=== PATIENT | male | born 1960 | race Caucasian/White ===

== ENCOUNTER 2016-08-27 13:04 | Inpatient (IN) | payer OTHER ==
[2016-08-27] MEDS ORDERED: Sodium Chloride 0.9% 1,000 ML IV STA ×3 (13:32→18:24)
[2016-08-27] MEDS ORDERED: Iohexol 240 (50 ml) PO ONE (13:35)
--- NOTE | 2016-08-27 13:39 | ED PDOC ---
HPI: Abdomen Time Seen by Provider: 08/27/16 13:13 Chief Complaint (Nursing): Abdominal Pain Chief Complaint (Provider): Abdomina pain, lower back pain History Per: Patient History/Exam Limitations: no limitations Onset/Duration Of Symptoms: Days (2) Current Symptoms Are (Timing): Still Present Context: Food Severity: Mild Location Of Pain/Discomfort: Epigastric Quality Of Discomfort: "Pain" Associated Symptoms: Back Pain, Urinary Symptoms Additional History Per: Patient Additional Complaint(s): The pt. is a 56yo male, presents to the ED for evaluation of epigastric abdominal pain with associated lower back pain since yesterday. Pt. reports he ate [employer] at 12:15 pm yesterday and 20 to 30 minutes later, felt faint and light headed. He then experienced abdominal pain and lower back pain which has been intermittent. Pt. reports he went home and took Pepto Bismol and Ibuprofen after which he felt better but his symptoms returned today, prompting his visit to the ED. Pt is additionally complaining of dysuria and frequency and generalized weakness. He denies any chest pain, shortness of breath, cough, throat pain, nausea, vomiting, numbness or tingling. He currently offers no additional medical complaints. No headache. Past Medical History Reviewed: Historical Data, Nursing Documentation, Vital Signs Vital Signs: Last Vital Signs Temp 98.6 F 08/27/16 17:08 Pulse 81 08/27/16 17:08 Resp 16 08/27/16 17:08 BP 116/78 08/27/16 17:08 Pulse Ox 98 08/27/16 17:09 - Medical History PMH: No Chronic Diseases Denies: Chronic Kidney Disease - Surgical History Surgical History: No Surg Hx - Family History Family History: States: Unknown Family Hx - Social History Current smoker - smoking cessation education provided: No Alcohol: None Drugs: Denies - Home Medications Home Medications: Ambulatory Orders Medication Instructions Recorded No Known Home Med 08/27/16 - Allergies Allergies/Adverse Reactions: Allergies Allergy/AdvReac Type Severity Reaction Status Date / Time No Known Allergies Allergy Verified 08/27/16 13:06 Review of Systems ROS Statement: Except As Marked, All Systems Reviewed And Found Negative Constitutional: Positive for: Weakness (generalized) Cardiovascular: Negative for: Chest Pain Respiratory: Negative for: Cough, Shortness of Breath Gastrointestinal: Positive for: Abdominal Pain. Negative for: Nausea, Vomiting Genitourinary Male: Positive for: Dysuria, Frequency Musculoskeletal: Positive for: Back Pain Neurological: Positive for: Other (light headed). Negative for: Weakness, Numbness Physical Exam - Reviewed Nursing Documentation Reviewed: Yes Vital Signs Reviewed: Yes - Physical Exam Appears: Positive for: Uncomfortable Head Exam: Positive for: ATRAUMATIC, NORMAL INSPECTION, NORMOCEPHALIC Skin: Positive for: Normal Color Eye Exam: Positive for: Normal appearance ENT: Positive for: Normal ENT Inspection. Negative for: Nasal Congestion, Pharyngeal Erythema, Tonsillar Exudate Neck: Positive for: Normal, Painless ROM, Supple Cardiovascular/Chest: Positive for: Regular Rate, Rhythm. Negative for: Edema Respiratory: Positive for: Normal Breath Sounds. Negative for: Respiratory Distress Gastrointestinal/Abdominal: Positive for: Soft, Tenderness (mild epigastric tenderness, no lower abdomen tenderness.) Back: Positive for: Normal Inspection. Negative for: L CVA Tenderness, R CVA Tenderness Extremity: Positive for: Normal ROM. Negative for: Tenderness, Pedal Edema, Deformity, Swelling Neurologic/Psych: Positive for: Alert, bullard operator II-XII, Oriented. Negative for: Motor/Sensory Deficits - Laboratory Results Result Diagrams: 08/27/16 14:00 08/27/16 14:00 Interpretation Of Abn Labs: 17.8 wbc, lacate 3, urine wbc, low phos Interpretation Of Abnormal: repeat vbg and lactate improved to normal limits. - ECG ECG: Positive for: Interpreted By Me, Viewed By Me ECG Rhythm: Positive for: Normal QRS, Normal ST Segment, Sinus Rhythm O2 Sat by Pulse Oximetry: 98 (RA) Pulse Ox Interpretation: Normal - Radiology X-Ray: Interpreted by Me, Viewed By Me, Read By Radiologist X-Ray Interpretation: No Acute Disease - CT Scan/US ct Other Rad Studies (CT/US): Read By Radiologist Other Rad Interpretation: no acute - Progress ED Course And Treament: 1819: Stable. AAOx3. Will need admit for pyelonephritis, severe sepsis. 1824: Stable. Spoke with Dr. Correa. Will admit tele. AAOx3. Feels better. No dizziness. He will give further orders when pt. reaches the floor. - Critical Care Total Time (In Min): 30 Documented Critical Care: Time excludes all time spent performint seperately billable procedures Medical Decision Making Medical Decision Making: Time: 1325 Impression: Abdominal pain, light headed Plan: -- CT AP w/ contrast -- Bloodwork -- Bentyl -- Toradol -- Zofran --Reassess Scribe Attestation: Documented by Analia Mims acting as a scribe for Manolo Casey MD. Provider Attestation: All medical record entries made by the Scribe were at my direction and personally dictated by me. I have reviewed the chart and agree that the record accurately reflects my personal performance of the history, physical exam, medical decision making, and the department course for this patient. I have also personally directed, reviewed, and agree with the discharge instructions and disposition. Disposition - Clinical Impression Clinical Impression: Pyelonephritis, Severe sepsis, Hypophosphatemia - Patient ED Disposition Is Patient to be Admitted: Yes Counseled Patient/Family Regarding: Studies Performed, Diagnosis - Disposition Disposition Time: 18:26 Condition: FAIR - Pt Status Changed To: Hospital Disposition Of: Inpatient - Admit Certification Admit to Inpatient:: After my assessment, the patient will require hospitalization for at least two midnights. This is because of the severity of symptoms shown, intensity of services needed, and/or the medical risk in this patient being treated as an outpatient. - POA Present On Arrival: None
[2016-08-27] MEDS ORDERED: Iohexol 240 (50 ml) ONE (13:41)
[2016-08-27 13:56] LABS: VENOUS BLOOD GAS BASE EXCESS -6.7 mmol/L (0.0-2.0); VENOUS BLOOD GAS PCO2 58 mmHg (40-60); VENOUS BLOOD PH 7.19 (7.32-7.43)
--- NOTE | 2016-08-27 14:12 | RAD ---
HISTORY: Sepsis Patient COMPARISON: No prior. FINDINGS: LUNGS: No active pulmonary disease. PLEURA: No significant pleural effusion identified, no pneumothorax apparent. CARDIOVASCULAR: Normal. OSSEOUS STRUCTURES: Portions of the left ribs and left costophrenic angle are excluded from the radiograph. VISUALIZED UPPER ABDOMEN: Normal. OTHER FINDINGS: None. IMPRESSION: No active disease.
[2016-08-27 14:15] LABS: BASO % 0.2 % (0.0-2.0); EOS # 0.1 K/uL (0.0-0.7); EOS % 0.6 % (0.0-4.0); HEMATOCRIT 43.9 % (35.0-51.0); LYMPH % 5.6 % (20.0-40.0); MEAN CELL VOLUME 82.9 fl (80.0-94.0); MEAN CORPUSCULAR HEMOGLOBIN 28.4 pg (27.0-31.0); MEAN CORPUSCULAR HGB CONC 34.2 g/dL (33.0-37.0); MEAN PLATELET VOLUME 9.4 fl (7.2-11.7); MONO # 1.2 K/uL (0.0-0.8); MONO % 6.6 % (0.0-10.0); NEUT # 15.5 K/uL (1.8-7.0); NRBC % 0.1 % (0.0-0.0); PLATELET COUNT 177 K/uL (130-400); RBC URINE 21 /hpf (0-3); RED CELL DISTRIBUTION WIDTH 14.2 % (11.5-14.5); URINE BILIRUBIN NEGATIVE (NEGATIVE); URINE BLOOD NEGATIVE (NEGATIVE); URINE COLOR AMBER (YELLOW); URINE GLUCOSE (UA) NEG (Normal); URINE KETONE NEGATIVE (NEGATIVE); URINE LEUKOCYTE ESTERASE LARGE Leu/uL (Negative); URINE PROTEIN 100 mg/dL (NEGATIVE); URINE UROBILINOGEN 0.2-1.0 mg/dL (0.2-1.0); WBC URINE 697 /hpf (0-5); WHITE BLOOD COUNT 17.8 K/uL (4.8-10.8)
[2016-08-27 14:22] LABS: ALB/GLOB RATIO 1.3 (1.0-2.1); ALKALINE PHOSPHATASE 65 U/L (38-126); ALT/SGPT 56 U/L (21-72); AST/SGOT 31 U/L (17-59); BILIRUBIN,TOTAL 1.2 mg/dl (0.2-1.3); BLOOD UREA NITROGEN 20 mg/dl (9-20); CALCIUM 9.6 mg/dL (8.4-10.2); CARBON DIOXIDE 24 mmol/L (22-30); CHLORIDE 104 mmol/L (98-107); GFR AFRICAN-AMERICAN > 60; GLUCOSE,RANDOM 135 mg/dL (75-110); LIPASE 55 U/L (23-300); MAGNESIUM 1.8 MG/DL (1.6-2.3); PHOSPHOROUS 1.9 mg/dl (2.5-4.5); POTASSIUM 3.8 MMOL/L (3.6-5.0); SODIUM 140 mmol/l (132-148); TOTAL PROTEIN 7.3 G/DL (6.3-8.2)
[2016-08-27 14:28] LABS: PARTIAL THROMBOPLASTIN TIME 25.7 SECONDS (23.3-32.5)
--- NOTE | 2016-08-27 14:51 | CARD ---
APPROVED REPORT EKG Measurement Heart [id number] <Conclusion> Normal sinus rhythm Normal ECG
[2016-08-27] MEDS ORDERED: Piperacillin/Tazobact 3.375 GM in Sodium Chloride 0.9% 100 ML IV STA (14:56)
[2016-08-27] MEDS ORDERED: Piperacillin/Tazobact 3.375 gm Inj IVPB ONE (14:58)
[2016-08-27 15:19] LABS: NEUTROPHIL 88 % (42-75); TOTAL CELLS COUNTED 100
[2016-08-27 16:58] LABS: VENOUS BLOOD GAS BASE EXCESS -0.2 mmol/L (0.0-2.0); VENOUS BLOOD GAS PCO2 37 mmHg (40-60); VENOUS BLOOD PH 7.42 (7.32-7.43)
[2016-08-27] MEDS ORDERED: Sodium Chloride 0.9% 100 ML ONE (17:04)
[2016-08-27] MEDS ORDERED: Iohexol 300 100 ML IJ ONE (17:04)
--- NOTE | 2016-08-27 17:58 | CT ---
PROCEDURE: CT Abdomen and Pelvis with contrast HISTORY: abd pain COMPARISON: None. TECHNIQUE: Contrast dose: 95 cc Radiation dose: Total exam DLP = 13 21 mGy-cm. This CT exam was performed using one or more of the following dose reduction techniques: Automated exposure control, adjustment of the mA and/or kV according to patient size, and/or use of iterative reconstruction technique. FINDINGS: LOWER THORAX: Evaluation of the lung bases reveals evidence of mild interstitial change and dependent atelectasis with some mild linear scarring or additional atelectasis seen in the lingula. No pleural effusion is seen. Visualized distal esophagus shows a small hiatal hernia. LIVER: Liver shows evidence of minor fatty infiltration without evidence of focal mass or intrahepatic ductal dilatation. GALLBLADDER AND BILE DUCTS: Unremarkable. PANCREAS: Unremarkable. No gross lesion or ductal dilatation. SPLEEN: Unremarkable. ADRENALS: Unremarkable. No mass. KIDNEYS AND URETERS: Kidneys show no evidence of hydronephrosis, calculus, or perinephric change. VASCULATURE: Unremarkable. No aortic aneurysm. BOWEL: Visualized stomach is unremarkable without evidence of stomach wall thickening. Duodenum is within normal limits as well as the gastric antrum. Very mild hypertrophic sigmoid colon diverticular changes are noted without pericolonic inflammatory change to suggest acute diverticulitis. No perirectal changes are identified. No bowel obstruction is noted. Terminal ileum is within normal limits. APPENDIX: Normal appendix. PERITONEUM: No pneumoperitoneum is seen. No ascites is noted. There is evidence of a small well-circumscribed benign-appearing nonenhancing cystic structure in the anterior abdomen just posterior to the umbilicus. This measures 3 centimeters x 2.1 centimeters by 3.1 centimeters. There is no definite connection to the umbilicus and/or other structures. This may reflect a small urachal remnant cyst and is probably of no clinical significance. LYMPH NODES: Unremarkable. No enlarged lymph nodes. BLADDER: Bladder is decompressed without focal wall thickening. REPRODUCTIVE: Prostate gland is enlarged. BONES: There is evidence of grade 1 spondylolisthesis of L5-S1. Mild degenerative disc disease is seen in the lower lumbar spine region. No lytic process is seen. OTHER FINDINGS: None. IMPRESSION: No appreciable acute inflammatory process in the abdomen or pelvis. No evidence of bowel obstruction. No free intraperitoneal air or ascites. Very mild diverticular changes in the sigmoid colon without pericolonic inflammatory change. Small nonenhancing smoothly marginated low density cystic structure just posterior to the umbilicus within the anterior abdominal cavity probably representing small urachal remnant cyst or omphalomesenteric cyst.
[2016-08-28] MEDS: Piperacillin/Tazobact 3.375 GM in Sodium Chloride 0.9% 100 ML IVPB SCH ×3 (00:27→16:42)
[2016-08-28] MEDS: Sodium Chloride 0.9% 1,000 ML IV SCH ×3 (02:30→23:34)
[2016-08-28 06:59] LABS: HEMATOCRIT 37.3 % (35.0-51.0); MEAN CORPUSCULAR HEMOGLOBIN 28.8 pg (27.0-31.0); MEAN CORPUSCULAR HGB CONC 34.8 g/dL (33.0-37.0); RED CELL DISTRIBUTION WIDTH 14.2 % (11.5-14.5); WHITE BLOOD COUNT 18.7 K/uL (4.8-10.8)
[2016-08-28 07:14] LABS: ALB/GLOB RATIO 1.1 (1.0-2.1); ALKALINE PHOSPHATASE 57 U/L (38-126); ALT/SGPT 43 U/L (21-72); AST/SGOT 25 U/L (17-59); BILIRUBIN,TOTAL 1.3 mg/dl (0.2-1.3); BLOOD UREA NITROGEN 15 mg/dl (9-20); CALCIUM 8.2 mg/dL (8.4-10.2); CARBON DIOXIDE 23 mmol/L (22-30); CHLORIDE 107 mmol/L (98-107); CHOLESTEROL 138 mg/dL (0-199); GFR AFRICAN-AMERICAN > 60; GLUCOSE,RANDOM 115 mg/dL (75-110); POTASSIUM 3.4 MMOL/L (3.6-5.0); SODIUM 140 mmol/l (132-148); TOTAL PROTEIN 5.7 G/DL (6.3-8.2)
[2016-08-28 07:31] LABS: T4 6.77 ug/dl (5.5-11.0)
[2016-08-28 07:45] LABS: THYROID STIMULATING HORMONE 0.34 mIU/ML (0.46-4.68)
--- NOTE | 2016-08-28 08:05 | HP ---
CHIEF COMPLAINT: Abdominal pain. HISTORY OF PRESENT ILLNESS: This is a 56-year-old male without significant past medical history who after eating at [employer] started having abdominal pain, which got improved with Motrin and Pepto Bi smol and [id number] medication, but then recurred and got worse, so patient was brought to [facility] Room and was found to be septic and admitted for further management. REVIEW OF SYSTEMS: Positive for abdominal pain, back pain and burning and frequency of urination. O therwise also is positive for generalized malaise and fever. Negative for headache, dizziness, synco pe, loss of consciousness, chest pain, shortness of breath, any new joint or extremity pain or neurol ogical symptoms. All other organ systems unremarkable. PAST MEDICAL HISTORY: Unremarkable. PAST SURGICAL HISTORY: Unremarkable. PERSONAL HISTORY: The patient is nonsmoker, nondrinker, no substance abuse. MEDICATIONS: The patient is not on any medications. ALLERGIES: The patient is not allergic to any medication. FAMILY HISTORY: Noncontributory. PHYSICAL EXAMINATION: GENERAL: Well-built, well-nourished, overweight, 56-year-old male, in no acute distress. VITAL SIGNS: Temperature up to 101.4, pulse 80, respirations 19, blood pressure 100/60, saturation 9 5%. HEENT: Pupils reacting to light. No JVD, no thyromegaly, no lymphadenopathy, no nystagmus. Normoce phalic, atraumatic skull. HEART: S1, S2 normal, regular. No significant murmur, gallop or rub is heard. LUNGS: Shows good bilateral air entry. No rales or rhonchi. ABDOMEN: Soft, nontender, no organomegaly, no fluid. Bowel sounds are plus. No sign of acute abdom en. No guarding, no rigidity, no rebound. EXTERNAL GENITALIA: Appropriate for patient's age. RECTAL: Stool for occult blood is negative. EXTREMITIES: No edema, no calf swelling, no tenderness, no acute ischemia. CENTRAL NERVOUS SYSTEM: The patient is alert, awake, oriented x 3. There is no sign of any acute gr oss focal, motor or sensory neurological deficit. DIAGNOSTIC DATA: Available reviewed. Telemetry monitoring does not reveal significant arrhythmia. WBC 17.8, hemoglobin , hematocrit 43, platelets 177. Venous pH was 7.19 with lactic acid level of 3. Sodium 140, potassium 3.8, chloride 104, bicarb 24, BUN 20, creatinine . SMA-12 was unre markable. Urinalysis shows 697 WBCs. CAT scan of abdomen was unremarkable. EKG is unremarkable. C hest x-ray is clear. ADMITTING IMPRESSION: Sepsis syndrome, questionable urinary tract infection with pyelonephritis, que stionable gastroenteritis. PLAN: As ordered. Case and plan discussed with patient. Jonnie Correa MD cc: [id number] TT: 08/28/2016 08:05:28 en
[2016-08-28] MEDS: Enoxaparin 40 mg Syringe SC SCH (08:55)
[2016-08-28] MEDS ORDERED: Metoprolol 1 mg/ml Inj IVP ONE ×2 (09:47→10:30)
[2016-08-28] MEDS ORDERED: Metoprolol 1 mg/ml Inj IVP STA (10:06)
--- NOTE | 2016-08-28 10:15 | PCM.RRTMUL ---
<Alvarez Pearson T - Last Filed: 08/28/16 10:36> DRAINAGE INSPECTOR Nurse Assessment - Situation DRAINAGE INSPECTOR Responder Arrival Time:: 09:53 Location:: [facility]- DRAINAGE INSPECTOR Reason for Call: Tachycardia DRAINAGE INSPECTOR Called By: RN - IV IV Inserted during DRAINAGE INSPECTOR?: No - Respiratory Oxygen Delivery Method:: Nasal Cannula Received Nebulizer Treatments:: No Was the Patient Ventilated with Bag/Mask 100% O2?: No Secretions Suctioned?: No Was the Patient Intubated?: No Was the Patient Placed on a Ventilator?: No - Vital Signs Blood Pressure:: 103/65 Pulse Rate:: 77 Respiratory Rate:: 18 Temperature:: 99 F Responder Note - Time DRAINAGE INSPECTOR was called Time DRAINAGE INSPECTOR was called:: 09:50 - Location Location: [facility] Discovered by:: nurse Primary Nurse:: tigre - DRAINAGE INSPECTOR Team DRAINAGE INSPECTOR Leader:: Kajal Hernández Resident:: Alvarez Pearson - Vital Signs at Initial Assessment Pulse Rate:: 130 - Chest Pain Chest Pain:(If answer is yes, complete next 2 questions): No - Seizure Seizure:: No - Neurological Status Neurological Status (Select all that apply):: Alert, Responsive, Oriented, Verbal, Follows Commands - Respiratory DRAINAGE INSPECTOR Delivery Method:: Nasal Cannula @L/min Oxygen Flow Rate:: 2 - Assessment of Findings DRAINAGE INSPECTOR Interventions: lopressor 5mgIV x 2 dose EKG: afib with rpr Labs: mag, phos, potassium, troponin Summary - Summary of Event Summary of Event: DRAINAGE INSPECTOR: HR of 130's and irregular S: 56 yo male with no significant pmhx presents in the ED with epigastric pain x 1 day found to be febrile 101.[address] abd showing mild diverticular changes. Pt was admitted for sepsis syndrome questionable UTI with pyelonephritis and gastroenteritis. Pt was found to have a heart rate of 130's and irregular rhythm on tele monitoring. Upon initial examination, pt laying in bed with NAD and speaking in full sentence. Pt states mild diffuse abdominal pain. Denies sob, chest pain, palpitation. Denies fever, chills, nausea, vomiting. Pt states having an excercise stress test 2014 with unremarkable result. Pt does not recall the reason for the test. Denies hx of arrhythmia, cardiovascular disease, stroke, DM and significant family history. O: Inital VS: Temp 99F HR 130 irregular BP 98/66 RR 12 PE: general: NAD, laying in bed with no apparent discomfort, speaking in full sentence, AAOx3 cardio: irregular rhythm, s1 and s2 present, no appreciate murmur, rub, gallop no jvd noted lung: clear to ausculation b/l abd: soft nontender bowel sound present ext: full range of motion, no peripheral edema, + pedal pulse Repeat VS: s/p lopressor 5mg IV x 2 doses: HR 118 BP 117/70 A: 56 yo male with no significant pmhx presents admitted for sepsis syndrome questionable UTI with pyelonephritis and gastroenteritis found to have new onset of afib. P: New onset of afib -EKG: afib with rpr. New compare to previous EKG -lopressor 5mg IV x 2 doses even -2L O2 NC given -AM lab reveiwed. f/u troponin, mag, phos, repeat potassium (previous 3.4) -CHADS-VASC score is 0 -pt stable at this time, with HR at 130's -Dr. Correa. pcp, recommend Cardizem drip and cardiology consult -Cardiology consult appreciated, Dr. De Paz: recommend Cardizem drip and hold anticoagulation secondary to gastroenteritis Will examine patient today -cardiazem drip started -Dr. Hernández, hospitalist, present during DRAINAGE INSPECTOR. <Kajal Hernández - Last Filed: 08/28/16 16:33> Attending/Attestation - Attestation I have personally seen and examined this patient.: Yes I have fully participated in the care of the patient.: Yes I have reviewed all pertinent clinical information: Yes Notes (Text): 08/28/16 16:33 Patient seen and examined with resident Dr. Alvarez Pearson. Agree with findings and plan as above.
[2016-08-28] MEDS ORDERED: Amiodarone 900 MG in Dextrose 5% In Water 500 ML IVPB SCH (10:36)
--- NOTE | 2016-08-28 13:07 | CP.PCM.CON ---
History of Present Illness - History of Present Illness History of Present Illness: I was asked to see patient by Dr. Correa. Libby is a 56 year old male with PMH HTN who presents with abdominal pain. He was febrile, and admitted for sepsis. The patient has had recurrent fever. The libby developed atrial fibrillation with rapid ventricular response. He was placed on cardizem drip. Patient denies chest pain or palpitations. Review of Systems - Constitutional Constitutional: absent: As Per HPI, Anorexia, Chills, Daytime Sleepiness, Excessive Sweating, Fatigue, Fever, Frequent Falls, Headache, Increased Appetite , Lethargy, Malaise, Night Sweats, Snoring, Sleep Apnea, Weight Gain, Weight Loss, Weakness, Other - EENT Eyes: absent: As Per HPI, Blind Spots, Blurred Vision, Change in Vision, Decreased Night Vision, Diplopia, Discharge, Dry Eye, Exophthalmos, Floaters, Irritation, Itchy Eyes, Loss of Peripheral Vision, Pain, Photophobia, Requires Corrective Lenses, Sees Flashes, Spots in Vision, Tunnel Vision, Other Visual Disturbances, Loss of Vision, Other Ears: absent: As Per HPI, Decreased Hearing, Ear Discharge, Ear Pain, Tinnitus, Abnormal Hearing, Disequilibrium, Dizziness, Other Nose/Mouth/Throat: absent: As Per HPI, Epistaxis, Nasal Congestion, Nasal Discharge, Nasal Obstruction, Nasal Trauma, Nose Pain, Post Nasal Drip, Sinus Pain, Sinus Pressure, Bleeding Gums, Change in Voice, Dental Pain, Dry Mouth, Dysphagia, Halitosis, Hoarsness, Lip Swelling, Mouth Lesions, Mouth Pain, Odynophagia, Sore Throat, Throat Swelling, Tongue Swelling, Facial Pain, Neck Pain, Neck Mass, Other - Cardiovascular Cardiovascular: Rapid Heart Rate - Respiratory Respiratory: absent: As Per HPI, Cough, Dyspnea, Hemoptysis, Dyspnea on Exertion , Wheezing, Snoring, Stridor, Pain on Inspiration, Chest Congestion, Excessive Mucous Production, Change in Mucous Color, Pain with Coughing, Other - Gastrointestinal Gastrointestinal: Abdominal Pain - Genitourinary Genitourinary: absent: As Per HPI, Change in Urinary Stream, Difficulty Urinating, Dysuria, Flank Pain, Hematuria, Pyuria, Nocturia, Urinary Incontinence, Urinary Frequency, Urinary Hesitance, Urinary Urgency, Voiding Freq/Small Amts, Freq UTI, Hx Renal/Bladder Calculi, Hx /Renal Surgery, Bladder Distension, Other - Musculoskeletal Musculoskeletal: absent: As Per HPI, Abnormal Gait, Arthralgias, Atrophy, Back Pain, Deformity, Joint Swelling, Limited Range of Motion, Loss of Height, Muscle Cramps, Muscle Weakness, Myalgias, Neck Pain, Numbness, Radiating Pain into Limb, Stiffness, Tingling, Other - Integumentary Integumentary: absent: As Per HPI, Acne, Alopecia, Bleeding Lesions, Change in Hair, Change in Nails, Change in Pigmentation, Changing Lesions, Dry Skin, Erythema, Furuncle, Hirsutism, Lesions, New Lesions, Non-Healing Lesions, Photosensitivity, Pruritus, Rash, Skin Pain, Skin Ulcer, Sores, Striae, Swelling , Unusual Bruising, Wounds, Jaundice, Other - Neurological Neurological: absent: As Per HPI, Abnormal Gait, Abnormal Hearing, Abnormal Movements, Abnormal Speech, Behavioral Changes, Burning Sensations, Confusion, Convulsions, Disequilibrium, Dizziness, Numbness, Focal Weakness, Frequent Falls , Headaches, Lack of Coordination, Loss of Vision, Memory Loss, Paresthesias, Radicular Pain, Restless Legs, Sensory Deficit, Syncope, Tingling, Tremor, Vertigo, Weakness, Other Visual Disturbances, Other - Psychiatric Psychiatric: absent: As Per HPI, Abnormal Sleep Pattern, Anhedonia, Anxiety, Auditory Hallucinations, Behavioral Changes, Change in Appetite, Change in Libido, Confusion, Depression, Difficulty Concentrating, Hallucinations, Homicidal Ideation, Hopelessness, Irritability, Memory Loss, Mood Swings, Panic Attacks, Paranoia, Suicidal Ideation, Visual Hallucinations, Tactile Hallucinations, Other - Endocrine Endocrine: absent: As Per HPI, Change in Body Appearance, Change in Libido, Cold Intolorance, Deepening of Voice, Excessive Sweating, Fatigue, Flushing, Heat Intolorance, Increase in Ring/Shoe/Hat Size, Palpitations, Polydipsia, Polyphagia, Polyuria, Other - Hematologic/Lymphatic Hematologic: absent: As Per HPI, Easy Bleeding, Easy Bruising, Lymphadenopathy, Other Past Patient History - Past Medical History & Family History Past Medical History?: Yes - Past Social History Smoking Status: Never Smoked - CARDIAC Hx Cardiac Disorders: No - PULMONARY Hx Respiratory Disorders: No - NEUROLOGICAL Hx Neurological Disorder: No - HEENT Hx HEENT Problems: No - RENAL Hx Chronic Kidney Disease: No - ENDOCRINE/METABOLIC Hx Endocrine Disorders: No - HEMATOLOGICAL/ONCOLOGICAL Hx Blood Disorders: No Hx AIDS: No Hx Human Immunodeficiency Virus (HIV): No - INTEGUMENTARY Hx Dermatological Problems: No - MUSCULOSKELETAL/RHEUMATOLOGICAL Hx Musculoskeletal Disorders: No Hx Falls: No - GASTROINTESTINAL Hx Gastrointestinal Disorders: Yes Hx Colitis: Yes (2011) - GENITOURINARY/GYNECOLOGICAL Hx Genitourinary Disorders: No - PSYCHIATRIC Hx Psychophysiologic Disorder: No Hx Substance Use: No - SURGICAL HISTORY Hx Surgeries: No - ANESTHESIA Hx Anesthesia: No Meds Allergies/Adverse Reactions: Allergies Allergy/AdvReac Type Severity Reaction Status Date / Time No Known Allergies Allergy Verified 08/27/16 13:06 - Medications Medications: Current Medications Acetaminophen (Tylenol 325mg Tab) 650 mg PO Q6 PRN PRN Reason: Fever >100.4 F Last Admin: 08/28/16 02:28 Dose: 650 mg Enoxaparin Sodium (Lovenox) 40 mg SC DAILY ROSANNA PRN Reason: Protocol Last Admin: 08/28/16 08:55 Dose: 40 mg Piperacillin Sod/Tazobactam (Sod 3.375 gm/ Sodium Chloride) 100 mls @ 100 mls/ hr IVPB Q8 ROSANNA Last Admin: 08/28/16 08:55 Dose: 100 mls/hr Sodium Chloride (Sodium Chloride 0.9%) 1,000 mls @ 125 mls/hr IV .Q8H [facility] Stop: 08/29/16 02:22 Last Admin: 08/28/16 02:30 Dose: 125 mls/hr Diltiazem HCl 125 mg/ Sodium (Chloride) 125 mls @ 5 mls/hr IV .Q24H ONE; 5 MG/ HR PRN Reason: Protocol Stop: 08/29/16 10:31 Last Admin: 08/28/16 11:05 Dose: 5 mg/hr, 5 mls/hr Ondansetron HCl (Zofran Inj) 4 mg IVP Q6 PRN PRN Reason: Nausea/Vomiting Physical Exam - Constitutional Appears: Non-toxic - Head Exam Head Exam: NORMAL INSPECTION - Eye Exam Eye Exam: Normal appearance - ENT Exam ENT Exam: Mucous Membranes Moist - Neck Exam Neck exam: Positive for: Full Rom - Respiratory Exam Respiratory Exam: NORMAL BREATHING PATTERN - Cardiovascular Exam Cardiovascular Exam: Tachycardia, Irregular Rhythm - GI/Abdominal Exam GI & Abdominal Exam: Normal Bowel Sounds - Rectal Exam Rectal Exam: Deferred - Extremities Exam Extremities exam: Negative for: pedal edema - Back Exam Back exam: NORMAL INSPECTION - Neurological Exam Neurological exam: Alert, Oriented x3 - Psychiatric Exam Psychiatric exam: Normal Affect - Skin Skin Exam: Normal Color Results - Vital Signs Recent Vital Signs: Last Vital Signs Temp 99.7 F H 08/28/16 11:59 Pulse 181 H 08/28/16 12:00 Resp 18 08/28/16 11:59 BP 155/77 H 08/28/16 12:00 Pulse Ox 99 08/28/16 11:59 - Labs Result Diagrams: 08/28/16 06:15 08/28/16 10:15 Labs: Laboratory Results - last 24 hr 08/28/16 08/28/16 08/28/16 06:15 06:15 10:15 WBC 18.7 H RBC 4.49 Hgb 13.0 D Hct 37.3 MCV 83.0 MCH 28.8 MCHC 34.8 RDW 14.2 Plt Count 146 Sodium 140 Potassium 3.4 L 3.3 L Chloride 107 Carbon Dioxide 23 Anion Gap 13 BUN 15 Creatinine 1.0 Est GFR ( Amer) > 60 Est GFR (Non-Af Amer) > 60 Random Glucose 115 H Calcium 8.2 L Total Bilirubin 1.3 AST 25 ALT 43 Alkaline Phosphatase 57 Troponin I Total Protein 5.7 L Albumin 3.0 L D Globulin 2.7 Albumin/Globulin Ratio 1.1 Triglycerides 76 Cholesterol 138 LDL Cholesterol Direct 82 HDL Cholesterol 33 Thyroxine (T4) 6.77 Total T3 0.648 L TSH 3rd Generation 0.34 L 08/28/16 10:48 WBC RBC Hgb Hct MCV MCH MCHC RDW Plt Count Sodium Potassium Chloride Carbon Dioxide Anion Gap BUN Creatinine Est GFR ( Amer) Est GFR (Non-Af Amer) Random Glucose Calcium Total Bilirubin AST ALT Alkaline Phosphatase Troponin I < 0.0120 Total Protein Albumin Globulin Albumin/Globulin Ratio Triglycerides Cholesterol LDL Cholesterol Direct HDL Cholesterol Thyroxine (T4) Total T3 TSH 3rd Generation - EKG Data EKG Interpreted by: Myself Assessment & Plan (1) Atrial fibrillation with rapid ventricular response Assessment and Plan: likely secondary to sepsis. continue cardizem. will check echocardiogram. hold anticoagulation Status: Acute (2) Severe sepsis Assessment and Plan: antibiotic therapy Status: Acute
[2016-08-28] MEDS ORDERED: Bismuth Subsalicylate 262 mg Chew Tab PO PRN (20:00)
[2016-08-28] MEDS ORDERED: Potassium Chloride 20 mEq ER Tab PO ONE (23:29)
[2016-08-29] MEDS: Piperacillin/Tazobact 3.375 GM in Sodium Chloride 0.9% 100 ML IVPB SCH ×2 (03:35→09:41)
[2016-08-29 07:21] LABS: HEMATOCRIT 37.3 % (35.0-51.0); MEAN CELL VOLUME 83.7 fl (80.0-94.0); MEAN CORPUSCULAR HEMOGLOBIN 28.4 pg (27.0-31.0)
[2016-08-29 07:29] LABS: ALKALINE PHOSPHATASE 66 U/L (38-126); ALT/SGPT 44 U/L (21-72); AST/SGOT 26 U/L (17-59); BILIRUBIN,TOTAL 0.8 mg/dl (0.2-1.3); BLOOD UREA NITROGEN 10 mg/dl (9-20); CALCIUM 8.3 mg/dL (8.4-10.2); CARBON DIOXIDE 23 mmol/L (22-30); CHLORIDE 109 mmol/L (98-107); GFR AFRICAN-AMERICAN > 60; GLUCOSE,RANDOM 122 mg/dL (75-110); MAGNESIUM 1.8 MG/DL (1.6-2.3); PHOSPHOROUS 2.6 mg/dl (2.5-4.5); SODIUM 140 mmol/l (132-148); TOTAL PROTEIN 5.9 G/DL (6.3-8.2)
[2016-08-29 07:31] LABS: POTASSIUM 3.6 MMOL/L (3.6-5.0)
--- NOTE | 2016-08-29 08:45 | PN ---
DATE: 08/29/2016 SUBJECTIVE: The patient is seen and examined. Interim events noted. Consults noted and appreciated . Cardiology and hospitalist interventions noted and appreciated. New onset of rapid AFib, which wa s controlled with Cardizem inpatient. He feels okay. No chest pain, no shortness of breath, no palp itation, no dizziness, no loss of consciousness. PHYSICAL EXAMINATION: GENERAL: The patient is in no acute distress. VITAL SIGNS: Stable. HEART: S1, S2 normal, regular. LUNGS: Good bilateral air exchange. ABDOMEN: Soft, nontender. EXTREMITIES: No edema, no calf swelling, no tenderness, no acute ischemia. CENTRAL NERVOUS SYSTEM: Essentially unchanged. DIAGNOSTIC DATA: Available diagnostic data reviewed. ____. Telemetry monitoring ____ of AFib, curr ently in sinus rhythm. Overall, the patient is clinically stable. PLAN: As ordered. Jonnie Correa MD cc: [id number] TT: 08/29/2016 08:45:29 Confirmation # [id number] Dictation # [id number] nestor
--- NOTE | 2016-08-29 08:55 | CARD ---
APPROVED REPORT EKG Measurement Heart [id number] <Conclusion> Atrial fibrillation with rapid ventricular response Abnormal ECG
[2016-08-29] MEDS: Potassium Chloride 20 mEq ER Tab PO SCH (09:42)
[2016-08-29] MEDS: Enoxaparin 40 mg Syringe SC SCH (09:42)
--- NOTE | 2016-08-29 13:19 | CARD ---
APPROVED REPORT EKG Measurement Heart [id number] <Conclusion> Normal sinus rhythm Normal ECG
--- NOTE | 2016-08-29 13:25 | PQF GENQUE ---
This form is a permanent part of the medical record 08/29/16 Dr. Correa, Documentation Clarification. There is no ICD-10 code for Sepsis Syndrome. Would you please further clarify the patient's condition. Admitted with abdominal pain and burning on urination. + febrile, tachycardia. WBC 17,800 with a L shift, Lactate 3.0. Urine CS growing E coli and Blood CS x 1 gram negative rods. Treated with IVAB Clarification of your documentation is requested to better reflect the severity of illness and intensity of treatment of your patient. PHYSICIAN'S RESPONSE Based on your medical judgment of the clinical indicators outlined above please clarify the following: [] Practitioner response [] If unable to determine, please check the box, sign and date. Present On Admission (POA) Indicator: [] Present at the time of admission [] Not present at the time of admission [] Clinically Undetermined In responding to this query, please exercise your independent professional judgment. The fact that a question is asked does not imply that any particular answer is desired or expected. Thank you for your clarification on this documentation. If you have any questions please call:extension [phone] * Thank you, Chrissie Kaufman RN [facility]
--- NOTE | 2016-08-29 13:37 | PQF GENQUE ---
This form is a permanent part of the medical record 08/29/16 Dr. Correa, ER with an additional diagnosis of Severe Sepsis. When coding Severe Sepsis an additional code to identify the specific acute organ dysfunction needs to be applied. Please clarify if the Severe Sepsis is ruled in or ruled out. If ruled in please document as well the acute organ dysfunction to go along with the Severe Sepsis. Clarification of your documentation is requested to better reflect the severity of illness and intensity of treatment of your patient. PHYSICIAN'S RESPONSE Based on your medical judgment of the clinical indicators outlined above please clarify the following: [] Practitioner response [] If unable to determine, please check the box, sign and date. Present On Admission (POA) Indicator: [] Present at the time of admission [] Not present at the time of admission [] Clinically Undetermined In responding to this query, please exercise your independent professional judgment. The fact that a question is asked does not imply that any particular answer is desired or expected. Thank you for your clarification on this documentation. If you have any questions please call:extension [phone] * Thank you, Chrissie Kaufman RN [facility]
--- NOTE | 2016-08-29 13:45 | CP.PCM.CON ---
History of Present Illness - History of Present Illness History of Present Illness: 56 yo male with gram negative blood stream infection with arrythmia Cardio on board Likely E Coli from urine which was matute sensitive however fever persists desppite IV rx Merrem added pending ID of blood isolate May need eval CT abd reviewed Review of Systems - Constitutional Constitutional: As Per HPI - EENT Eyes: absent: As Per HPI, Blind Spots, Blurred Vision, Change in Vision, Decreased Night Vision, Diplopia, Discharge, Dry Eye, Exophthalmos, Floaters, Irritation, Itchy Eyes, Loss of Peripheral Vision, Pain, Photophobia, Requires Corrective Lenses, Sees Flashes, Spots in Vision, Tunnel Vision, Other Visual Disturbances, Loss of Vision, Other Ears: absent: As Per HPI, Decreased Hearing, Ear Discharge, Ear Pain, Tinnitus, Abnormal Hearing, Disequilibrium, Dizziness, Other Nose/Mouth/Throat: absent: As Per HPI, Epistaxis, Nasal Congestion, Nasal Discharge, Nasal Obstruction, Nasal Trauma, Nose Pain, Post Nasal Drip, Sinus Pain, Sinus Pressure, Bleeding Gums, Change in Voice, Dental Pain, Dry Mouth, Dysphagia, Halitosis, Hoarsness, Lip Swelling, Mouth Lesions, Mouth Pain, Odynophagia, Sore Throat, Throat Swelling, Tongue Swelling, Facial Pain, Neck Pain, Neck Mass, Other - Cardiovascular Cardiovascular: absent: As Per HPI, Acrocyanosis, Chest Pain, Chest Pain at Rest , Chest Pain with Activity, Claudication, Diaphoresis, Dyspnea, Dyspnea on Exertion, Edema, Irregular Heart Rhythm, Pain Radiating to Arm/Neck/Jaw, Leg Edema, Leg Ulcers, Lightheadedness, Orthopnea, Palpitations, Paroxysmal Nocturnal Dyspnea, Pedal Edema, Radiating Pain, Rapid Heart Rate, Slow Heart Rate, Syncope, Other - Respiratory Respiratory: absent: As Per HPI, Cough, Dyspnea, Hemoptysis, Dyspnea on Exertion , Wheezing, Snoring, Stridor, Pain on Inspiration, Chest Congestion, Excessive Mucous Production, Change in Mucous Color, Pain with Coughing, Other - Gastrointestinal Gastrointestinal: absent: As Per HPI, Abdominal Pain, Belching, Bloating, Change in Bowel Habits, Change in Stool Character, Coffee Ground Emesis, Constipation, Cramping, Diarrhea, Dyspepsia, Dysphagia, Early Satiety, Excessive Flatus, Fecal Incontinence, Heartburn, Hematemesis, Hematochezia, Loose Stools, Melena, Nausea, Odynophagia, Temesmus, Vomiting, Other - Genitourinary Genitourinary: As Per HPI - Musculoskeletal Musculoskeletal: absent: As Per HPI, Abnormal Gait, Arthralgias, Atrophy, Back Pain, Deformity, Joint Swelling, Limited Range of Motion, Loss of Height, Muscle Cramps, Muscle Weakness, Myalgias, Neck Pain, Numbness, Radiating Pain into Limb, Stiffness, Tingling, Other - Integumentary Integumentary: absent: As Per HPI, Acne, Alopecia, Bleeding Lesions, Change in Hair, Change in Nails, Change in Pigmentation, Changing Lesions, Dry Skin, Erythema, Furuncle, Hirsutism, Lesions, New Lesions, Non-Healing Lesions, Photosensitivity, Pruritus, Rash, Skin Pain, Skin Ulcer, Sores, Striae, Swelling , Unusual Bruising, Wounds, Jaundice, Other - Neurological Neurological: absent: As Per HPI, Abnormal Gait, Abnormal Hearing, Abnormal Movements, Abnormal Speech, Behavioral Changes, Burning Sensations, Confusion, Convulsions, Disequilibrium, Dizziness, Numbness, Focal Weakness, Frequent Falls , Headaches, Lack of Coordination, Loss of Vision, Memory Loss, Paresthesias, Radicular Pain, Restless Legs, Sensory Deficit, Syncope, Tingling, Tremor, Vertigo, Weakness, Other Visual Disturbances, Other - Psychiatric Psychiatric: absent: As Per HPI, Abnormal Sleep Pattern, Anhedonia, Anxiety, Auditory Hallucinations, Behavioral Changes, Change in Appetite, Change in Libido, Confusion, Depression, Difficulty Concentrating, Hallucinations, Homicidal Ideation, Hopelessness, Irritability, Memory Loss, Mood Swings, Panic Attacks, Paranoia, Suicidal Ideation, Visual Hallucinations, Tactile Hallucinations, Other - Endocrine Endocrine: absent: As Per HPI, Change in Body Appearance, Change in Libido, Cold Intolorance, Deepening of Voice, Excessive Sweating, Fatigue, Flushing, Heat Intolorance, Increase in Ring/Shoe/Hat Size, Palpitations, Polydipsia, Polyphagia, Polyuria, Other - Hematologic/Lymphatic Hematologic: absent: As Per HPI, Easy Bleeding, Easy Bruising, Lymphadenopathy, Other Past Patient History - Past Medical History & Family History Past Medical History?: Yes - Past Social History Smoking Status: Never Smoked - CARDIAC Hx Cardiac Disorders: No - PULMONARY Hx Respiratory Disorders: No - NEUROLOGICAL Hx Neurological Disorder: No - HEENT Hx HEENT Problems: No - RENAL Hx Chronic Kidney Disease: No - ENDOCRINE/METABOLIC Hx Endocrine Disorders: No - HEMATOLOGICAL/ONCOLOGICAL Hx Blood Disorders: No Hx AIDS: No Hx Human Immunodeficiency Virus (HIV): No - INTEGUMENTARY Hx Dermatological Problems: No - MUSCULOSKELETAL/RHEUMATOLOGICAL Hx Musculoskeletal Disorders: No Hx Falls: No - GASTROINTESTINAL Hx Gastrointestinal Disorders: Yes Hx Colitis: Yes (2011) - GENITOURINARY/GYNECOLOGICAL Hx Genitourinary Disorders: No - PSYCHIATRIC Hx Psychophysiologic Disorder: No Hx Substance Use: No - SURGICAL HISTORY Hx Surgeries: No - ANESTHESIA Hx Anesthesia: No Meds Allergies/Adverse Reactions: Allergies Allergy/AdvReac Type Severity Reaction Status Date / Time No Known Allergies Allergy Verified 08/27/16 13:06 - Medications Medications: Current Medications Acetaminophen (Tylenol 325mg Tab) 650 mg PO Q6 PRN PRN Reason: Fever >100.4 F Last Admin: 08/28/16 13:20 Dose: 650 mg Acetaminophen (Tylenol 325mg Tab) 650 mg PO Q6 PRN PRN Reason: Pain, moderate (4-7) Last Admin: 08/29/16 03:37 Dose: 650 mg Bismuth Subsalicylate (Pepto Bismol) 262 mg PO Q6 PRN PRN Reason: diarhea Last Admin: 08/28/16 21:12 Dose: 262 mg Diltiazem HCl (Cardizem) 30 mg PO TID [facility] Last Admin: 08/29/16 12:23 Dose: Not Given Enoxaparin Sodium (Lovenox) 40 mg SC DAILY ROSANNA PRN Reason: Protocol Last Admin: 08/29/16 09:42 Dose: 40 mg Meropenem 500 mg/ Sodium (Chloride) 100 mls @ 100 mls/hr IVPB Q8 [facility] Ondansetron HCl (Zofran Inj) 4 mg IVP Q6 PRN PRN Reason: Nausea/Vomiting Potassium Chloride (K-Dur 20 Meq Er Tab) 20 meq PO DAILY [facility] Last Admin: 08/29/16 09:42 Dose: 20 meq Physical Exam - Constitutional Appears: Toxic - Head Exam Head Exam: ATRAUMATIC, NORMAL INSPECTION, NORMOCEPHALIC - Eye Exam Eye Exam: PERRL. absent: Scleral icterus Pupil Exam: NORMAL ACCOMODATION - ENT Exam ENT Exam: Mucous Membranes Dry, Normal External Ear Exam, Normal Oropharynx - Neck Exam Neck exam: Negative for: Lymphadenopathy, Thyromegaly - Respiratory Exam Respiratory Exam: Decreased Breath Sounds, Rhonchi - Cardiovascular Exam Cardiovascular Exam: REGULAR RHYTHM, +S1, +S2 - GI/Abdominal Exam GI & Abdominal Exam: Diminished Bowel Sounds, Soft. absent: Tenderness - Rectal Exam Rectal Exam: Deferred - Exam Exam: NORMAL INSPECTION - Extremities Exam Extremities exam: Positive for: pedal pulses present. Negative for: calf tenderness, pedal edema, tenderness - Back Exam Back exam: absent: CVA tenderness (L), CVA tenderness (R) - Neurological Exam Neurological exam: Alert, CN II-XII Intact, Oriented x3, Reflexes Normal - Psychiatric Exam Psychiatric exam: Normal Mood - Skin Skin Exam: Dry, Intact Results - Vital Signs Recent Vital Signs: Last Vital Signs Temp 98.4 F 08/29/16 12:20 Pulse 65 08/29/16 12:23 Resp 20 08/29/16 12:20 BP 107/67 08/29/16 12:23 Pulse Ox 98 08/29/16 12:20 - Labs Result Diagrams: 08/29/16 05:45 08/29/16 05:45 Labs: Laboratory Results - last 24 hr 08/28/16 08/29/16 08/29/16 06:15 05:45 05:45 WBC 12.0 H RBC 4.45 Hgb 12.7 Hct 37.3 MCV 83.7 MCH 28.4 MCHC 34.0 RDW 14.0 Plt Count 141 Sodium 140 Potassium 3.6 Chloride 109 H Carbon Dioxide 23 Anion Gap 12 BUN 10 Creatinine 0.9 Est GFR ( Amer) > 60 Est GFR (Non-Af Amer) > 60 Random Glucose 122 H Calcium 8.3 L Phosphorus 2.6 Magnesium 1.8 Total Bilirubin 0.8 AST 26 ALT 44 Alkaline Phosphatase 66 Total Protein 5.9 L Albumin 3.0 L Globulin 2.9 Albumin/Globulin Ratio 1.0 Vitamin B12 370 Assessment & Plan (1) Atrial fibrillation with rapid ventricular response Status: Acute (2) Pyelonephritis Status: Acute (3) Severe sepsis Status: Acute - Assessment and Plan (Free Text) Assessment: as per orders
--- NOTE | 2016-08-29 16:24 | CARD ---
APPROVED REPORT EXAM: Two-dimensional and M-mode echocardiogram with Doppler and color Doppler. Other Information Quality : GoodRhythm : NSR INDICATION Atrial Fibrillation 2D DIMENSIONS IVSd1.38 (0.7-1.1cm)LVDd4.38 (3.9-5.9cm) LVOT Diameter2.23 (1.8-2.4cm)PWd0.99 (0.7-1.1cm) IVSs1.34 (0.8-1.2cm)LVDs2.88 (2.5-4.0cm) FS (%) 34.2 %PWs1.40 (0.8-1.2cm) M-Mode DIMENSIONS Left Atrium (MM)4.00 (2.5-4.0cm)IVSd1.00 (0.7-1.1cm) Aortic Root3.22 (2.2-3.7cm)LVDd5.63 (4.0-5.6cm) Aortic Cusp Exc.2.16 (1.5-2.0cm)PWd0.97 (0.7-1.1cm) IVSs1.59 cmFS (%) 51 % LVDs2.78 (2.0-3.8cm)PWs1.66 cm Mitral Valve MV E Pqfaxztb166.3cm/sMV DECEL [id number] A Arndfsgv24.7cm/s MV EMO38woG/A ratio1.9MVA (PHT)7.04cm2 TDI Lateral E' Peak V13.04cm/sMedial E' Peak V11.90cm/sE/Lateral E'7.7 E/Medial E'8.4 Pulmonary Valve PV Peak Oskemnrj746.0cm/s Tricuspid Valve TR Peak Rueyumtz804oi/sRAP [id number] Peak Gr.27mmHg [id number] LEFT VENTRICLE The left ventricle is normal size. There is normal left ventricular wall thickness. The left ventricular function is normal. The left ventricular ejection fraction is - 65-70%. There is normal LV segmental wall motion. The left ventricular diastolic function is normal. No left ventricle thrombus noted on this study. There is no ventricular septal defect visualized. There is no left ventricular aneurysm. There is no mass noted in the left ventricle. RIGHT VENTRICLE The right ventricle is normal size. There is normal right ventricular wall thickness. The right ventricular systolic function is normal. ATRIA The left atrium size is normal. There is no thrombus suspected in the left atrium. The right atrium size is normal. The interatrial septum is intact with no evidence for an atrial septal defect. AORTIC VALVE The aortic valve is normal in structure and function. No aortic regurgitation is present. There is no aortic valvular stenosis. MITRAL VALVE The mitral valve is normal in structure and function. There is no evidence of mitral valve prolapse. There is no mitral valve stenosis. Mitral regurgitation is trace. TRICUSPID VALVE The tricuspid valve is normal in structure and function. There is mild to moderate tricuspid regurgitation. Right ventricular systolic pressure is estimated at 36 mmHg. There is no tricuspid valve prolapse or vegetation. There is no tricuspid valve stenosis. PULMONIC VALVE The pulmonary valve is normal in structure and function. There is trace pulmonic valvular regurgitation. GREAT VESSELS The aortic root is normal in size. The IVC is normal in size and collapses >50% with inspiration. PERICARDIAL EFFUSION The pericardium appears normal. There is no pleural effusion. <Conclusion> The left ventricle is normal in size and wall thickness. The left ventricular function is normal. The left ventricular ejection fraction is - 65-70%. The left atrium, right ventricle and right atrium are normal in size. The aortic, mitral and tricuspid valves are normal. There is trace mitral regurgitation and mild to moderate tricuspid regurgitation.
[2016-08-29] MEDS: Meropenem 500 MG in Sodium Chloride 0.9% 100 ML IVPB SCH (16:33)
[2016-08-30] MEDS: Meropenem 500 MG in Sodium Chloride 0.9% 100 ML IVPB SCH ×2 (01:10→09:30)
[2016-08-30 06:51] LABS: HEMATOCRIT 38.2 % (35.0-51.0); MEAN CELL VOLUME 81.6 fl (80.0-94.0); MEAN CORPUSCULAR HGB CONC 34.3 g/dL (33.0-37.0); WHITE BLOOD COUNT 12.1 K/uL (4.8-10.8)
[2016-08-30 07:10] LABS: ALB/GLOB RATIO 1.3 (1.0-2.1); ALKALINE PHOSPHATASE 88 U/L (38-126); ALT/SGPT 47 U/L (21-72); AST/SGOT 28 U/L (17-59); BILIRUBIN,TOTAL 0.7 mg/dl (0.2-1.3); BLOOD UREA NITROGEN 12 mg/dl (9-20); CALCIUM 8.7 mg/dL (8.4-10.2); CARBON DIOXIDE 23 mmol/L (22-30); CHLORIDE 105 mmol/L (98-107); GFR AFRICAN-AMERICAN > 60; GLUCOSE,RANDOM 103 mg/dL (75-110); POTASSIUM 3.8 MMOL/L (3.6-5.0); SODIUM 138 mmol/l (132-148); TOTAL PROTEIN 6.3 G/DL (6.3-8.2)
--- NOTE | 2016-08-30 08:11 | PN ---
DATE: 08/30/2016 The patient seen and examined. Interim events noted. Consults noted, appreciated. Infectious disea se and cardiology followup and intervention noted and appreciated. The patient remains in progressiv e care unit on telemetry monitoring. The patient feels okay. Denies any specific urinary complaint, any chest pain or shortness of breath. PHYSICAL EXAMINATION: GENERAL: The patient is in no acute distress. VITAL SIGNS: Stable. HEART: S1, S2 normal, regular. LUNGS: Good bilateral air entry. ABDOMEN: Soft, nontender. EXTREMITIES: No calf swelling, no edema, no tenderness. CENTRAL NERVOUS SYSTEM: Essentially unchanged. DIAGNOSTIC DATA: Available reviewed. Telemetry monitoring does not reveal significant arrhythmia. PSA level is 59.4. On further inquiry, patient admits to having a prostate problem about a year ago and was seen by Dr. Denis. I will request consult with Dr. Denis again. PLAN: As ordered. Jonnie Correa MD cc: [id number] TT: 08/30/2016 08:11:25 Confirmation # [id number] Dictation # [id number]
[2016-08-30] MEDS: Potassium Chloride 20 mEq ER Tab PO SCH (09:27)
[2016-08-30] MEDS: Enoxaparin 40 mg Syringe SC SCH (09:28)
--- NOTE | 2016-08-30 12:15 | CP.PCM.PN ---
Subjective - Date & Time of Evaluation Date of Evaluation: 08/30/16 Time of Evaluation: 06:00 - Subjective Subjective: blood and urine + e coli both sensitive to cephalosporins will switch to cefepime cont iv rx for now xin suggested PSA sent Objective - Vital Signs/Intake and Output Vital Signs (last 24 hours): Temp Pulse Resp BP Pulse Ox 98.8 F 62 20 124/73 96 08/30/16 08:29 08/30/16 12:09 08/30/16 08:29 08/30/16 12:09 08/30/16 08:29 - Medications Medications: Current Medications Acetaminophen (Tylenol 325mg Tab) 650 mg PO Q6 PRN PRN Reason: Fever >100.4 F Last Admin: 08/30/16 05:02 Dose: 650 mg Acetaminophen (Tylenol 325mg Tab) 650 mg PO Q6 PRN PRN Reason: Pain, moderate (4-7) Last Admin: 08/29/16 03:37 Dose: 650 mg Bismuth Subsalicylate (Pepto Bismol) 262 mg PO Q6 PRN PRN Reason: diarhea Last Admin: 08/28/16 21:12 Dose: 262 mg Diltiazem HCl (Cardizem) 30 mg PO TID [facility] Last Admin: 08/30/16 12:09 Dose: 30 mg Enoxaparin Sodium (Lovenox) 40 mg SC DAILY [facility] PRN Reason: Protocol Last Admin: 08/30/16 09:28 Dose: 40 mg Ondansetron HCl (Zofran Inj) 4 mg IVP Q6 PRN PRN Reason: Nausea/Vomiting Potassium Chloride (K-Dur 20 Meq Er Tab) 20 meq PO DAILY [facility] Last Admin: 08/30/16 09:27 Dose: 20 meq - Labs Labs: 08/30/16 06:15 08/30/16 06:15 PT 10.5 SECONDS (9.6-11.2) 08/27/16 14:00 INR 1.01 (0.92-1.08) 08/27/16 14:00 APTT 25.7 SECONDS (23.3-32.5) 08/27/16 14:00 - Constitutional Appears: Non-toxic, Chronically Ill - Head Exam Head Exam: NORMOCEPHALIC - Eye Exam Eye Exam: PERRL. absent: Scleral icterus - Neck Exam Neck Exam: Full ROM - Respiratory Exam Respiratory Exam: Decreased Breath Sounds, Clear to Ausculation Bilateral - Cardiovascular Exam Cardiovascular Exam: REGULAR RHYTHM - GI/Abdominal Exam GI & Abdominal Exam: Distended, Soft. absent: Tenderness - Rectal Exam Rectal Exam: Deferred - Exam Exam: NORMAL INSPECTION - Extremities Exam Extremities Exam: absent: Pedal Edema - Back Exam Back Exam: absent: CVA tenderness (L), CVA tenderness (R) Assessment and Plan (1) Atrial fibrillation with rapid ventricular response Status: Acute (2) Pyelonephritis Status: Acute (3) Severe sepsis Status: Acute
[2016-08-30 14:46] VITALS: BMI 30.5
--- NOTE | 2016-08-30 15:03 | US ---
PROCEDURE: Pelvic ultrasound HISTORY: male, high psa COMPARISON: 08/27/2016. CT abdomen and pelvis.. TECHNIQUE: Standard protocol for this study/examination. FINDINGS: Transabdominal assessment of the prostate: Prostate volume 54.6 mL. PPSA 6.55. Two small cysts identified in the prostate. These are midline including a periurethral cyst 1.6 cm. A more posteriorly situated cyst 9 x 14 mm identified. IMPRESSION: Limited assessment of the prostate. Benign incidental findings noted. Prostate volume 54.6 mL corresponds to P PSA 6.55
[2016-08-30] MEDS: Cefepime 2 GM in Sodium Chloride 0.9% 100 ML IVPB SCH ×2 (16:08→21:18)
[2016-08-31 05:04] LABS: HEMATOCRIT 39.5 % (35.0-51.0); MEAN CELL VOLUME 82.6 fl (80.0-94.0); MEAN CORPUSCULAR HEMOGLOBIN 27.9 pg (27.0-31.0); MEAN CORPUSCULAR HGB CONC 33.8 g/dL (33.0-37.0); RED CELL DISTRIBUTION WIDTH 13.7 % (11.5-14.5); WHITE BLOOD COUNT 12.3 K/uL (4.8-10.8)
[2016-08-31 05:15] LABS: ALB/GLOB RATIO 1.3 (1.0-2.1); ALKALINE PHOSPHATASE 92 U/L (38-126); ALT/SGPT 54 U/L (21-72); AST/SGOT 40 U/L (17-59); BILIRUBIN,TOTAL 0.7 mg/dl (0.2-1.3); BLOOD UREA NITROGEN 12 mg/dl (9-20); CALCIUM 8.8 mg/dL (8.4-10.2); CARBON DIOXIDE 24 mmol/L (22-30); CHLORIDE 105 mmol/L (98-107); GFR AFRICAN-AMERICAN > 60; GLUCOSE,RANDOM 111 mg/dL (75-110); POTASSIUM 3.7 MMOL/L (3.6-5.0); SODIUM 138 mmol/l (132-148); TOTAL PROTEIN 6.5 G/DL (6.3-8.2)
--- NOTE | 2016-08-31 09:15 | CP.PCM.PN ---
Subjective - Date & Time of Evaluation Date of Evaluation: 08/31/16 Time of Evaluation: 09:09 - Subjective Subjective: 56 year old male admitted with fever and found to have Ecoli in urine pt is on antibiotics and has improved.Pt has had a CT scan and a pelvic us neither of which show any sig. pathology. A UTI with ECOLI Suggest continue with full course of sensitive antibiotics as per ID, PT should have urological follow up when antibiotics complete as outpatient. Adeel Objective - Vital Signs/Intake and Output Vital Signs (last 24 hours): Temp Pulse Resp BP Pulse Ox 98.3 F 74 18 126/73 95 08/31/16 08:26 08/31/16 08:26 08/31/16 08:26 08/31/16 08:26 08/31/16 08:26 - Medications Medications: Current Medications Acetaminophen (Tylenol 325mg Tab) 650 mg PO Q6 PRN PRN Reason: Fever >100.4 F Last Admin: 08/30/16 16:07 Dose: 650 mg Acetaminophen (Tylenol 325mg Tab) 650 mg PO Q6 PRN PRN Reason: Pain, moderate (4-7) Last Admin: 08/29/16 03:37 Dose: 650 mg Bismuth Subsalicylate (Pepto Bismol) 262 mg PO Q6 PRN PRN Reason: diarhea Last Admin: 08/28/16 21:12 Dose: 262 mg Diltiazem HCl (Cardizem) 30 mg PO TID [facility] Last Admin: 08/30/16 16:05 Dose: 30 mg Enoxaparin Sodium (Lovenox) 40 mg SC DAILY [facility] PRN Reason: Protocol Last Admin: 08/30/16 09:28 Dose: 40 mg Cefepime HCl 2 gm/ Sodium (Chloride) 100 mls @ 100 mls/hr IVPB Q12 [facility] Last Admin: 08/30/16 21:18 Dose: 100 mls/hr Ondansetron HCl (Zofran Inj) 4 mg IVP Q6 PRN PRN Reason: Nausea/Vomiting Potassium Chloride (K-Dur 20 Meq Er Tab) 20 meq PO DAILY [facility] Last Admin: 08/30/16 09:27 Dose: 20 meq Tamsulosin HCl (Flomax) 0.4 mg PO DAILY [facility] Last Admin: 08/30/16 21:18 Dose: 0.4 mg - Labs Labs: 08/31/16 04:40 08/31/16 04:40 PT 10.5 SECONDS (9.6-11.2) 08/27/16 14:00 INR 1.01 (0.92-1.08) 08/27/16 14:00 APTT 25.7 SECONDS (23.3-32.5) 08/27/16 14:00
[2016-08-31] MEDS: Potassium Chloride 20 mEq ER Tab PO SCH (09:35)
[2016-08-31] MEDS: Cefepime 2 GM in Sodium Chloride 0.9% 100 ML IVPB SCH ×2 (09:35→20:30)
[2016-08-31] MEDS: Enoxaparin 40 mg Syringe SC SCH (09:35)
--- NOTE | 2016-08-31 10:16 | CON ---
DATE: 08/31/2016 REASON FOR CONSULTATION: Urosepsis. HISTORY OF PRESENT ILLNESS: The patient presented in the hospital with fever. He was worked up in [facility] with multiple diagnostic imaging and laboratory data and was found to have an E. coli uri nary tract infection. The patient has been placed on antibiotics by the infectious disease consultan and feels he has improved. He has a history of prostatitis in the past as an outpatient and no his tory of further abnormalities. REVIEW OF SYSTEMS: RESPIRATORY SYSTEM: The patient has no respiratory complaints. CARDIAC: The patient has no cardiac complaints. GASTROINTESTINAL: There are no complaints of nauseousness and vomiting. GENITOURINARY: The patient has a history of frequency, dysuria and fever at home, and positive urina ry tract infection on this admission with E. coli. NEUROLOGICAL: Negative. ORTHOPEDIC: Negative. INTEGUMENT: Negative. PHYSICAL EXAMINATION: VITAL SIGNS: Within normal limits. Last night, the patient had a low-grade fever. HEENT: Within normal limits. NECK: Supple. There are no bruits, nodes, or masses. CHEST: Clear bilaterally with no rales or rhonchi. HEART: Normal sinus rhythm. There is no murmur. There is no cardiomegaly. BREASTS: Normal. ABDOMEN: Soft, nontender. There is no mass or organomegaly. There is no CVA tenderness. Bladder i s not palpably distended. GENITOURINARY: Penis, testicles, epididymis, and cord are normal. There is no evidence of epididymi tis. Prostate is 2 to 3+ nonnodular, nontender at this point. NEUROLOGIC: Normal. SKIN: Normal. ORTHOPEDIC: Normal. I have also reviewed the patient's CAT scan of the abdomen and pelvis and pelvic cultures, and I have reviewed the films as well as the reports. ASSESSMENT: Genitourinary sepsis, improving with present medication. SUGGEST THE FOLLOWING: I would add Flomax to the patient to be sure that he is emptying completely. Since there is no evidence of abscess, stones or obstruction of the urinary tract, no indication for instrumentation at this time. I would suggest once the patient has received a full 10-14 day cou rse of sensitive antibiotics and his white count has returned to normal, he should be followed up as an outpatient urologically to see if there is any further therapy necessary. I would continue the Fl omax on discharge. Cayetano Denis MD cc: [phone] TT: 08/31/2016 10:15:52 Confirmation # [id number] Dictation # [id number] mn
--- NOTE | 2016-08-31 14:02 | CP.PCM.PN ---
Subjective - Date & Time of Evaluation Date of Evaluation: 08/31/16 Time of Evaluation: 13:59 - Subjective Subjective: evaluated with attending. no overngiht events. Feeling much improved. Denies abd pain, dysuria, hematuria, CVAT. Tolerating PO, denies n/v. Denies chest pain , SOB.Making urine and BM. Objective - Vital Signs/Intake and Output Vital Signs (last 24 hours): Temp Pulse Resp BP Pulse Ox 98.3 F 74 18 126/73 95 08/31/16 08:26 08/31/16 09:34 08/31/16 08:26 08/31/16 09:34 08/31/16 08:26 - Medications Medications: Current Medications Acetaminophen (Tylenol 325mg Tab) 650 mg PO Q6 PRN PRN Reason: Fever >100.4 F Last Admin: 08/30/16 16:07 Dose: 650 mg Acetaminophen (Tylenol 325mg Tab) 650 mg PO Q6 PRN PRN Reason: Pain, moderate (4-7) Last Admin: 08/29/16 03:37 Dose: 650 mg Bismuth Subsalicylate (Pepto Bismol) 262 mg PO Q6 PRN PRN Reason: diarhea Last Admin: 08/28/16 21:12 Dose: 262 mg Diltiazem HCl (Cardizem) 30 mg PO TID [facility] Last Admin: 08/31/16 13:31 Dose: 30 mg Enoxaparin Sodium (Lovenox) 40 mg SC DAILY [facility] PRN Reason: Protocol Last Admin: 08/31/16 09:35 Dose: 40 mg Cefepime HCl 2 gm/ Sodium (Chloride) 100 mls @ 100 mls/hr IVPB Q12 [facility] Last Admin: 08/31/16 09:35 Dose: 100 mls/hr Ondansetron HCl (Zofran Inj) 4 mg IVP Q6 PRN PRN Reason: Nausea/Vomiting Potassium Chloride (K-Dur 20 Meq Er Tab) 20 meq PO DAILY [facility] Last Admin: 08/31/16 09:35 Dose: 20 meq Tamsulosin HCl (Flomax) 0.4 mg PO DAILY [facility] Last Admin: 08/31/16 09:34 Dose: 0.4 mg - Labs Labs: 08/31/16 04:40 08/31/16 04:40 PT 10.5 SECONDS (9.6-11.2) 08/27/16 14:00 INR 1.01 (0.92-1.08) 08/27/16 14:00 APTT 25.7 SECONDS (23.3-32.5) 08/27/16 14:00 - Head Exam Head Exam: NORMAL INSPECTION - Eye Exam Eye Exam: Normal appearance - ENT Exam ENT Exam: Mucous Membranes Moist - Neck Exam Neck Exam: Normal Inspection - Respiratory Exam Respiratory Exam: Clear to Ausculation Bilateral - Cardiovascular Exam Cardiovascular Exam: REGULAR RHYTHM - GI/Abdominal Exam GI & Abdominal Exam: Soft - Extremities Exam Extremities Exam: Normal Inspection - Back Exam Back Exam: absent: CVA tenderness (L), CVA tenderness (R) - Neurological Exam Neurological Exam: Alert, Oriented x3 - Skin Skin Exam: Dry, Warm Assessment and Plan (1) Atrial fibrillation with rapid ventricular response Assessment & Plan: -cardizem PO -cardio on board, appreciate input Status: Acute (2) Pyelonephritis Assessment & Plan: -maxipime -ID on board, appreciate input Status: Acute (3) Severe sepsis Assessment & Plan: -2/2 pyelonephritis -blood cx E. coli Status: Acute
--- NOTE | 2016-08-31 15:28 | CP.PCM.PN ---
Subjective - Date & Time of Evaluation Date of Evaluation: 08/31/16 Time of Evaluation: 08:00 - Subjective Subjective: events nnoted for d/c on cipro for 14 days with follow up Objective - Vital Signs/Intake and Output Vital Signs (last 24 hours): Temp Pulse Resp BP Pulse Ox 98.3 F 74 18 126/73 95 08/31/16 08:26 08/31/16 09:34 08/31/16 08:26 08/31/16 09:34 08/31/16 08:26 - Medications Medications: Current Medications Acetaminophen (Tylenol 325mg Tab) 650 mg PO Q6 PRN PRN Reason: Fever >100.4 F Last Admin: 08/30/16 16:07 Dose: 650 mg Acetaminophen (Tylenol 325mg Tab) 650 mg PO Q6 PRN PRN Reason: Pain, moderate (4-7) Last Admin: 08/29/16 03:37 Dose: 650 mg Bismuth Subsalicylate (Pepto Bismol) 262 mg PO Q6 PRN PRN Reason: diarhea Last Admin: 08/28/16 21:12 Dose: 262 mg Diltiazem HCl (Cardizem) 30 mg PO TID [facility] Last Admin: 08/31/16 13:31 Dose: 30 mg Enoxaparin Sodium (Lovenox) 40 mg SC DAILY [facility] PRN Reason: Protocol Last Admin: 08/31/16 09:35 Dose: 40 mg Cefepime HCl 2 gm/ Sodium (Chloride) 100 mls @ 100 mls/hr IVPB Q12 [facility] Last Admin: 08/31/16 09:35 Dose: 100 mls/hr Ondansetron HCl (Zofran Inj) 4 mg IVP Q6 PRN PRN Reason: Nausea/Vomiting Potassium Chloride (K-Dur 20 Meq Er Tab) 20 meq PO DAILY [facility] Last Admin: 08/31/16 09:35 Dose: 20 meq Tamsulosin HCl (Flomax) 0.4 mg PO DAILY [facility] Last Admin: 08/31/16 09:34 Dose: 0.4 mg - Labs Labs: 08/31/16 04:40 08/31/16 04:40 PT 10.5 SECONDS (9.6-11.2) 08/27/16 14:00 INR 1.01 (0.92-1.08) 08/27/16 14:00 APTT 25.7 SECONDS (23.3-32.5) 08/27/16 14:00 Assessment and Plan (1) Atrial fibrillation with rapid ventricular response Status: Acute (2) Pyelonephritis Status: Acute (3) Severe sepsis Status: Acute
[2016-09-01 07:43] LABS: HEMATOCRIT 43.3 % (35.0-51.0); MEAN CORPUSCULAR HEMOGLOBIN 28.7 pg (27.0-31.0); RED CELL DISTRIBUTION WIDTH 14.2 % (11.5-14.5); WHITE BLOOD COUNT 13.6 K/uL (4.8-10.8)
[2016-09-01 07:50] LABS: ALB/GLOB RATIO 1.3 (1.0-2.1); ALKALINE PHOSPHATASE 126 U/L (38-126); ALT/SGPT 104 U/L (21-72); AST/SGOT 83 U/L (17-59); BILIRUBIN,TOTAL 0.7 mg/dl (0.2-1.3); BLOOD UREA NITROGEN 12 mg/dl (9-20); CALCIUM 9.4 mg/dL (8.4-10.2); CARBON DIOXIDE 23 mmol/L (22-30); CHLORIDE 106 mmol/L (98-107); GFR AFRICAN-AMERICAN > 60; GLUCOSE,RANDOM 119 mg/dL (75-110); POTASSIUM 3.8 MMOL/L (3.6-5.0); SODIUM 142 mmol/l (132-148); TOTAL PROTEIN 7.9 G/DL (6.3-8.2)
[2016-09-01] MEDS: Potassium Chloride 20 mEq ER Tab PO SCH (09:12)
[2016-09-01 09:17] VITALS: BP 133/86; PULSE 68; RESP 18; TEMP 98; O2SAT 97
[2016-09-01] MEDS: Cefepime 2 GM in Sodium Chloride 0.9% 100 ML IVPB SCH (09:19)
--- NOTE | 2016-09-01 10:01 | CP.PCM.DIS ---
Provider - Provider Date of Admission: 08/27/16 18:28 Attending physician: Jonnie Correa MD Time Spent in preparation of Discharge (in minutes): 20 Hospital Course - Lab Results Lab Results: Micro Results 08/29/16 13:50 Blood Blood Culture - Preliminary NO GROWTH AFTER 48 HOURS Most Recent Lab Values WBC 13.6 K/uL (4.8-10.8) H 09/01/16 06:25 RBC 5.28 Mil/uL (4.40-5.90) 09/01/16 06:25 Hgb 15.2 g/dL (12.0-18.0) 09/01/16 06:25 Hct 43.3 % (35.0-51.0) 09/01/16 06:25 MCV 82.0 fl (80.0-94.0) 09/01/16 06:25 MCH 28.7 pg (27.0-31.0) 09/01/16 06:25 MCHC 35.0 g/dL (33.0-37.0) 09/01/16 06:25 RDW 14.2 % (11.5-14.5) 09/01/16 06:25 Plt Count 255 K/uL (130-400) 09/01/16 06:25 MPV 9.4 fl (7.2-11.7) 08/27/16 14:00 Neut % (Auto) 87.0 % (50.0-75.0) H 08/27/16 14:00 Lymph % (Auto) 5.6 % (20.0-40.0) L 08/27/16 14:00 [place] % (Auto) 6.6 % (0.0-10.0) 08/27/16 14:00 Eos % (Auto) 0.6 % (0.0-4.0) 08/27/16 14:00 Baso % (Auto) 0.2 % (0.0-2.0) 08/27/16 14:00 Neut # 15.5 K/uL (1.8-7.0) H 08/27/16 14:00 Lymph # 1.0 K/uL (1.0-4.3) 08/27/16 14:00 [place] # 1.2 K/uL (0.0-0.8) H 08/27/16 14:00 Eos # 0.1 K/uL (0.0-0.7) 08/27/16 14:00 Baso # 0.0 K/uL (0.0-0.2) 08/27/16 14:00 Neutrophils % (Manual) 88 % (42-75) H 08/27/16 14:00 Band Neutrophils % 2 % (0-2) 08/27/16 14:00 Lymphocytes % (Manual) 9 % (20-50) L 08/27/16 14:00 Monocytes % (Manual) 1 % (0-10) 08/27/16 14:00 Platelet Estimate Normal (NORMAL) 08/27/16 14:00 PT 10.5 SECONDS (9.6-11.2) 08/27/16 14:00 INR 1.01 (0.92-1.08) 08/27/16 14:00 APTT 25.7 SECONDS (23.3-32.5) 08/27/16 14:00 pO2 42 mm/Hg (30-55) 08/27/16 16:53 VBG pH 7.42 (7.32-7.43) 08/27/16 16:53 VBG pCO2 37 mmHg (40-60) L 08/27/16 16:53 VBG HCO3 24.3 mmol/L 08/27/16 16:53 VBG Total CO2 25.1 mmol/L (22-28) 08/27/16 16:53 VBG O2 Sat (Calc) 84.5 % (40-65) H 08/27/16 16:53 VBG Base Excess -0.2 mmol/L (0.0-2.0) L 08/27/16 16:53 VBG Potassium 3.1 mmol/L (3.6-5.2) L 08/27/16 16:53 Sodium 136.0 mmol/L (132-148) 08/27/16 16:53 Chloride 107.0 mmol/L (98-107) 08/27/16 16:53 Glucose 107 mg/dL (75-110) 08/27/16 16:53 Lactate 1.0 mmol/L (0.7-2.1) 08/27/16 16:53 FiO2 21.0 % 08/27/16 16:53 Blood Gas Comments Lactate 3.0 08/27/16 13:50 Crit Value Called To brittany Rogel 08/27/16 13:50 Crit Value Called By 203 08/27/16 13:50 Crit Value Read Back Y 08/27/16 13:50 Blood Gas Notified Time 1355 08/27/16 13:50 Sodium 142 mmol/l (132-148) 09/01/16 06:25 Potassium 3.8 MMOL/L (3.6-5.0) 09/01/16 06:25 Chloride 106 mmol/L (98-107) 09/01/16 06:25 Carbon Dioxide 23 mmol/L (22-30) 09/01/16 06:25 Anion Gap 17 (10-20) 09/01/16 06:25 BUN 12 mg/dl (9-20) 09/01/16 06:25 Creatinine 0.8 mg/dL (0.8-1.5) 09/01/16 06:25 Est GFR ( Amer) > 60 09/01/16 06:25 Est GFR (Non-Af Amer) > 60 09/01/16 06:25 Random Glucose 119 mg/dL (75-110) H 09/01/16 06:25 Calcium 9.4 mg/dL (8.4-10.2) 09/01/16 06:25 Phosphorus 2.6 mg/dl (2.5-4.5) 08/29/16 05:45 Magnesium 1.8 MG/DL (1.6-2.3) 08/29/16 05:45 Total Bilirubin 0.7 mg/dl (0.2-1.3) 09/01/16 06:25 AST 83 U/L (17-59) H D 09/01/16 06:25 ALT 104 U/L (21-72) H D 09/01/16 06:25 Alkaline Phosphatase 126 U/L (38-126) D 09/01/16 06:25 Troponin I < 0.0120 ng/mL (0.00-0.120) 08/28/16 10:48 Total Protein 7.9 G/DL (6.3-8.2) 09/01/16 06:25 Albumin 4.4 g/dL (3.5-5.0) 09/01/16 06:25 Globulin 3.5 gm/dL (2.2-3.9) 09/01/16 06:25 Albumin/Globulin Ratio 1.3 (1.0-2.1) 09/01/16 06:25 Triglycerides 76 mg/DL (0-149) 08/28/16 06:15 Cholesterol 138 mg/dL (0-199) 08/28/16 06:15 LDL Cholesterol Direct 82 mg/dL (0-129) 08/28/16 06:15 HDL Cholesterol 33 MG/DL (30-70) 08/28/16 06:15 Lipase 55 U/L (23-300) 08/27/16 14:00 Prostate Specific Ag 59.7 ng/ML (0.00-4.0) H 08/29/16 14:13 Vitamin B12 370 pg/mL (239-931) 08/28/16 06:15 Thyroxine (T4) 6.77 ug/dl (5.5-11.0) 08/28/16 06:15 Total T3 0.648 nmol/L (1.49-2.60) L 08/28/16 06:15 TSH 3rd Generation 0.34 mIU/ML (0.46-4.68) L 08/28/16 06:15 Venous Blood Potassium 3.1 mmol/L (3.6-5.2) L 08/27/16 16:53 Urine Color Faye (YELLOW) 08/27/16 14:00 Urine Clarity Cloudy (Clear) 08/27/16 14:00 Urine pH 6.0 (5.0-8.0) 08/27/16 14:00 Ur Specific [place] 1.033 (1.003-1.030) H 08/27/16 14:00 Urine Protein 100 mg/dL (NEGATIVE) 08/27/16 14:00 Urine Glucose (UA) Neg mg/dL (Normal) 08/27/16 14:00 Urine Ketones Negative mg/dL (NEGATIVE) 08/27/16 14:00 Urine Blood Negative (NEGATIVE) 08/27/16 14:00 Urine Nitrate Negative (NEGATIVE) 08/27/16 14:00 Urine Bilirubin Negative (NEGATIVE) 08/27/16 14:00 Urine Urobilinogen 0.2-1.0 mg/dL (0.2-1.0) 08/27/16 14:00 Ur Leukocyte Esterase Large Lisa/uL (Negative) 08/27/16 14:00 Urine RBC (Auto) 21 /hpf (0-3) H 08/27/16 14:00 Urine Microscopic WBC 697 /hpf (0-5) H 08/27/16 14:00 Influenza Typ A,B (EIA) Negative for flu a/b (NEGATIVE) 08/27/16 15:00 - Hospital Course Hospital Course: 56yo M with PMHx HTN admitted for pyelonephritis, sepsis, and new onset paroxysmal Afib with RVR. Cardio Dr. Sanon c/s for Afib with recommendation to continue cardizem drip and then cardizem PO once rate controlled and to hold off on anticoagulation as likely 2/2 sepsis, ECHO with LVEF 65-70%. ID Dr. Mcgee c/s for pyelonephritis, pt placed and cefepime for abx. c/s Dr. Denis for +blood cx E coli with recommendation for outpt FU with once outpt abx completed. Pt d/c on Cipro 500mg BID PO x2 weeks. Discharge Exam - Head Exam Head Exam: NORMAL INSPECTION - Eye Exam Eye Exam: Normal appearance - ENT Exam ENT Exam: Mucous Membranes Moist - Neck Exam Neck exam: Normal Inspection - Respiratory Exam Respiratory Exam: NORMAL BREATHING PATTERN - Cardiovascular Exam Cardiovascular Exam: Irregular Rhythm - GI/Abdominal Exam GI & Abdominal Exam: Soft - Extremities Exam Extremities exam: normal inspection - Back Exam Back exam: absent: CVA tenderness (L), CVA tenderness (R) - Neurological Exam Neurological exam: Alert, Oriented x3 - Skin Skin Exam: Dry, Warm Discharge Plan - Discharge Medications Prescriptions: Ciprofloxacin HCl [Cipro] 500 mg PO Q12 #28 tablet diltiaZEM [Cardizem] 30 mg PO TID #90 tab Lactobacillus Acidophilus [Bacid Acidophilus] 1 cap PO BID #28 cap Tamsulosin [Flomax] 0.4 mg PO DAILY #30 cap - Follow Up Plan Condition: FAIR Disposition: HOME/ ROUTINE Instructions: Urinary Tract Infection in Women (DC), Urinary Tract Infection in Men (DC), Sepsis (DC), Sepsis (GEN), Dysuria (GEN) Additional Instructions: patient cleared for discharge to Home today by and Dr. Mcgee, Rx for all meds provided ( see med reconciliation) cont. cipro 500 mg po bid x 14 days cont. bacid pt. will f/u with in 1 week f/u cbc, cmp, crp, sed rate in 1 week Referrals: Jonnie Correa MD [Staff Provider] -
== END 2016-09-01 12:35 | disposition home or self-care (01) | DRG 901 ==
LOC: H.ER 13:04 → H.ERHOLD 18:28 → H.TEL 21:11
PROVIDERS: ADMIT Internal Medicine; ATTEND Internal Medicine
DX: A41.51 Sepsis due to Escherichia coli [E. coli] (principal); E83.39 Other disorders of phosphorus metabolism; I10 Essential (primary) hypertension; N12 Tubulo-interstitial nephritis, not specified as acute or chronic; I48.0 Paroxysmal atrial fibrillation; R65.20 Severe sepsis without septic shock; K52.9 Noninfective gastroenteritis and colitis, unspecified

== ENCOUNTER 2017-06-08 11:50 | Emergency (ER) | payer MEDICAID, OTHER ==
[2017-06-08 12:01] VITALS: BMI 31.3
--- NOTE | 2017-06-08 12:32 | ED PDOC ---
HPI: General Adult Time Seen by Provider: 06/08/17 12:18 Chief Complaint (Nursing): Flu-like Symptoms Chief Complaint (Provider): flu like symptoms History Per: Patient History/Exam Limitations: no limitations Onset/Duration Of Symptoms: Days (x2) Current Symptoms Are (Timing): Still Present Additional Complaint(s): Patient is a 57 year old male who presents to the ER complaining of body aches, global headache, tactile fever, and cough for 2 days. Taking Tylenol at home with minimal relief, last dose yesterday. Denes any associated nausea, vomiting , diarrhea, rash, sick contact, recent travel, abdominal pain, or chest pain. PMD: Dr. Khan Past Medical History Reviewed: Historical Data, Nursing Documentation, Vital Signs Vital Signs: Last Vital Signs Temp 98.4 F 06/08/17 15:13 Pulse 80 06/08/17 15:13 Resp 17 06/08/17 15:13 BP 129/81 06/08/17 15:13 Pulse Ox 96 06/08/17 15:13 - Medical History PMH: Denies: HIV, Chronic Kidney Disease Other PMH: Prostate enlargement - Surgical History Surgical History: No Surg Hx - Family History Family History: States: Unknown Family Hx - Social History Current smoker - smoking cessation education provided: No Alcohol: Social Drugs: Denies - Home Medications Home Medications: Ambulatory Orders Medication Instructions Recorded Ciprofloxacin HCl [Cipro] 500 mg PO Q12 #28 tablet 09/01/16 Lactobacillus Acidophilus [Bacid 1 cap PO BID #28 cap 09/01/16 Acidophilus] Tamsulosin [Flomax] 0.4 mg PO DAILY #30 cap 09/01/16 diltiaZEM [Cardizem] 30 mg PO TID #90 tab 09/01/16 Acetaminophen [Acetaminophen ER] 650 mg PO TID PRN #20 tablet.er 06/08/17 Oseltamivir Phosphate [Tamiflu] 75 mg PO BID #10 capsule 06/08/17 Promethazine DM [Phenergan DM 5 ml PO Q6 #150 ml 06/08/17 Syrup] - Allergies Allergies/Adverse Reactions: Allergies Allergy/AdvReac Type Severity Reaction Status Date / Time No Known Allergies Allergy Verified 08/27/16 13:06 Review of Systems ROS Statement: Except As Marked, All Systems Reviewed And Found Negative Constitutional: Positive for: Fever, Other (Body aches) Cardiovascular: Negative for: Chest Pain Respiratory: Positive for: Cough Gastrointestinal: Negative for: Nausea, Vomiting, Abdominal Pain, Diarrhea Skin: Negative for: Rash Neurological: Positive for: Headache Physical Exam - Reviewed Nursing Documentation Reviewed: Yes Vital Signs Reviewed: Yes - Physical Exam Appears: Positive for: Non-toxic, No Acute Distress Head Exam: Positive for: ATRAUMATIC, NORMOCEPHALIC Skin: Positive for: Normal Color, Warm, Dry Eye Exam: Positive for: EOMI, Normal appearance, PERRL ENT: Positive for: Normal ENT Inspection Neck: Positive for: Normal, Painless ROM Cardiovascular/Chest: Positive for: Regular Rate, Rhythm. Negative for: Murmur Respiratory: Positive for: Normal Breath Sounds, Other (speaking in full sentences, respirations even and nonlabored.). Negative for: Decreased Breath Sounds, Accessory Muscle Use, Rhonchi, Wheezing, Respiratory Distress Gastrointestinal/Abdominal: Positive for: Normal Exam, Soft. Negative for: Tenderness Back: Positive for: Normal Inspection. Negative for: Vertebral Tenderness Extremity: Positive for: Normal ROM. Negative for: Pedal Edema, Deformity Neurologic/Psych: Positive for: Alert, Oriented - ECG O2 Sat by Pulse Oximetry: 95 (RA) Pulse Ox Interpretation: Normal Medical Decision Making Medical Decision Making: Initial Impression: Fever, cough, likely viral illness or influenza Time: 12:42 Plan: Chest X-Ray Robitussin and Tylenol Time: 12:53 CHEST X-RAY: FINDINGS: LUNGS: No active pulmonary disease. PLEURA: No significant pleural effusion identified. No pneumothorax apparent. CARDIOVASCULAR: No radiographic findings to suggest acute or significant cardiovascular disease. OSSEOUS STRUCTURES: No significant abnormalities. VISUALIZED UPPER ABDOMEN: Normal. OTHER FINDINGS: None. IMPRESSION: No active disease. No significant interval change compared to the prior examination(s). 13:20 On reevaluation, patient still complaining of cough. Ordered albuterol and duoneb treatments. 14:01 Patient given initial dose of Tamiflu in the ER 14:31 On re-examination, lungs are clear to auscultation. Vital signs stable. Patient is medically stable. Will d/c with Tamiflu, Promethazine, and Acetaminophen prescriptions. Counseling was provided and all questions were answered regarding diagnosis and need for follow up with PMD. There is agreement to discharge plan. Return if symptoms persist or worsen. Scribe Attestation: Documented by Brandy Morgan, acting as a scribe for Maira Thompson PA-C Provider Scribe Attestation: All medical record entries made by the Scribe were at my direction and personally dictated by me. I have reviewed the chart and agree that the record accurately reflects my personal performance of the history, physical exam, medical decision making, and the department course for this patient. I have also personally directed, reviewed, and agree with the discharge instructions and disposition. Disposition - Clinical Impression Clinical Impression: Fever, Body aches, Influenza, Cough in adult, Influenza-like symptoms - Patient ED Disposition Is Patient to be Admitted: No Counseled Patient/Family Regarding: Studies Performed, Diagnosis, Need For Followup, Rx Given - Disposition Disposition: Routine/Home Disposition Time: 14:31 Condition: STABLE Prescriptions: Acetaminophen [Acetaminophen ER] 650 mg PO TID PRN #20 tablet.er PRN Reason: fever, bodyaches Oseltamivir Phosphate [Tamiflu] 75 mg PO BID #10 capsule Promethazine DM [Phenergan DM Syrup] 5 ml PO Q6 #150 ml Instructions: Flu, Cough in Adults, Fever, Adult (DC) Forms: [employer] (Angolan) Print Language: POLISH - POA Present On Arrival: None
[2017-06-08] MEDS ORDERED: guaiFENesin 200 mg/10 ml Syrup UD PO STA (12:43)
[2017-06-08] MEDS ORDERED: guaiFENesin 100 mg/5 ml Syrup UD ONE (12:55)
[2017-06-08] MEDS ORDERED: Albuterol-Ipratrop 3 mg / 0.5 (3 ml) UD INH STA (13:20)
[2017-06-08] MEDS ORDERED: Albuterol 0.083% Inhal Sol (2.5 mg/3 mL) UD INH STA (13:20)
[2017-06-08] MEDS ORDERED: Albuterol-Ipratrop 3 mg / 0.5 (3 ml) UD ONE (13:39)
--- NOTE | 2017-06-08 13:44 | RAD ---
HISTORY: fever, cough COMPARISON: 08/27/2016 TECHNIQUE: Chest PA and lateral FINDINGS: LUNGS: No active pulmonary disease. PLEURA: No significant pleural effusion identified. No pneumothorax apparent. CARDIOVASCULAR: No radiographic findings to suggest acute or significant cardiovascular disease. OSSEOUS STRUCTURES: No significant abnormalities. VISUALIZED UPPER ABDOMEN: Normal. OTHER FINDINGS: None. IMPRESSION: No active disease. No significant interval change compared to the prior examination(s).
[2017-06-08] MEDS ORDERED: Albuterol 0.083% Inhal Sol (2.5 mg/3 mL) UD ONE (13:54)
[2017-06-08 15:13] VITALS: BP 129/81; PULSE 80; RESP 17; TEMP 98.4
[2017-06-08 20:03] VITALS: O2SAT 95
== END 2017-06-08 15:14 | disposition home or self-care (01) ==
LOC: H.ER 11:50
DX: J11.1 Influenza due to unidentified influenza virus with other respiratory manifestations (principal); N40.0 Benign prostatic hyperplasia without lower urinary tract symptoms